=== PATIENT | female | born 1955 | race American Indian/Alaskan Native ===

== ENCOUNTER 2020-11-18 08:03 | Outpatient (CLI) | payer BC, OTHER | END 2020-11-18 19:29 | disposition home or self-care (01) | LOC: INF 08:03 | PROVIDERS: ATTEND Internal Medicine | DX: Z23 Encounter for immunization (principal) | CPT/HCPCS: 96372 ==

== ENCOUNTER 2020-12-08 08:12 | Outpatient (CLI) | payer BC, OTHER | END 2020-12-08 19:50 | disposition home or self-care (01) | LOC: INF 08:12 | PROVIDERS: ATTEND Internal Medicine | DX: Z23 Encounter for immunization (principal) | CPT/HCPCS: 96372 ==

== ENCOUNTER 2022-08-12 09:43 | Outpatient (CLI) | payer BC | END 2022-08-12 19:18 | disposition home or self-care (01) | LOC: RAD 09:43 | PROVIDERS: ATTEND Nurse Practitioner Gerontology | DX: M25.551 Pain in right hip (principal); M25.552 Pain in left hip ==

== ENCOUNTER 2023-03-01 10:45 | Outpatient (CLI) | payer BC | END 2023-03-01 18:53 | disposition home or self-care (01) | LOC: RAD 10:45 | PROVIDERS: ATTEND Nurse Practitioner Gerontology | DX: M17.12 Unilateral primary osteoarthritis, left knee (principal); M25.562 Pain in left knee ==